=== PATIENT | female | born 1960 | race Caucasian/White ===

== ENCOUNTER 2019-10-09 13:52 | Emergency (ER) | payer BC ==
--- OUTSIDE RECORDS SUMMARY | 2019-10-09 13:56 | XMS REPORT | Clinical Summary ---
:1960 Author Organization [facility] Address [address] [place] [address] Care Team Providers Name Role Phone MD Jennifer Primary Care Provider Allergies Active Allergy Reactions Severity Noted Date Comments Penicillins Other (See Comments) 08/20/2019 As a ch ild Medications Medication Sig Dispensed Refills Start Date End Date Status ibandronate (BONIVA) Take 150 mg by 0 Active 150 mg tablet mouth every 30 (thirty) days. Take in AM with glass of water prior to food, don't lie down for 30 minutes. Next dose 09/05/19 calcium Take 1 tablet by 0 Act christi carbonate/vitamin D3 mouth daily. (CALCIUM 500 + D ORAL) therapeutic Take 1 tablet by 0 A ctive multivitamin mouth daily. (THERAGRAN) tablet aspirin (ECOTRIN) 81 MG Take 81 mg by 0 Active enteric coated tablet mouth daily. ibuprofen (ADVIL) 200 Take 200 mg by 0 Active MG tablet mouth every 8 (eight) hours as needed for mild pain. acetaminophen-codeine Take 1 tablet by 0 Active (TYLENOL WITH CODEINE mouth nightly #3) 300-30 mg per .acute pain. tabletIndications: acute pain acetaminophen (TYLENOL Take 1,000 mg by 0 Active EXTRA STRENGTH ORAL) mouth. zolpidem (AMBIEN) 5 MG Take 5 mg by 0 Active tablet mouth nightly as needed for sleep. Active Problems Problem Noted Date DDD (degenerative disc disease), lumbar 08/20/2019 Resolved Problems Problem Noted Date Resolved Date Left lumbar radiculopathy 08/20/2019 10/04/2019 Synovial cyst 08/20/2019 10/04/2019 Encounters Date Type Specialty Care Team Description 10/09/2019 Telephone Neurosurgery Josefina Mcdowell, [employer]CH[employer] 10/04/2019 Office Visit Neurosurgery Mao Monroy DDD (tiago Lewis MD disc disease), lumbar (Primary Dx) 10/04/2019 Travel 09/06/2019 Travel 09/04/2019 Anesthesia Event General Surgery Alem Anne MD Robles Garcia, Elsa, [employer] 09/04/2019 Surgery General Surgery Mao Monroy LUMBAR JENA ECTOMY, MD Joshua DISCECTOMY, EXC ISION SYNOVIAL CYST, LEFT L4-L5 09/04/2019 Hospital Encounter General Surgery Mao Monroy Radicu lopathy, lumbar region; MD Joshua Other bursal cy st, unspecified site 09/03/2019 Lab Lab Mao Monroy Pre-op testing MD Joshua 08/31/2019 Travel 08/31/2019 Orders Only Neurosurgery Josefina Mcdowell, Pre-op testing [employer] ARCHITECT (Primary Dx) 08/20/2019 Pre-Admit Testing Pre-Admission Testing Mao Monroy P re-op testing Appointment MD Joshua 08/20/2019 Hospital Encounter Radiology Mao Monroy MD 08/20/2019 Office Visit Neurosurgery Mao Monroy Left lumbar rad iculopathy (Primary Dx); MD Joshua DDD (degenzaynabti ve disc disease), lumbar; Synovial cyst 08/20/2019 Hospital Encounter Radiology Mao Monroy Spinal st enosis of MD Joshua lumbar region, unspecified whe ther neurogenic claudication pr esent 08/20/2019 Hospital Encounter Radiology Mao Monroy Spinal st enosis tyron Lewis MD lumbar region, unspecified whe ther neurogenic claudication pr esent 08/20/2019 Orders Only Neurosurgery Josefina Mcdowell, Pre-op testing [employer]CHIT[employer] (Primary Dx) 08/20/2019 Travel 08/08/2019 Orders Only Neurosurgery Josefina Mcdowell, Spinal stenosis of [employer] ARCHITECT lumbar region, unspecified whe ther neurogenic claudication pr esent (Primary Dx) 08/08/2019 Travel after 10/08/2018 Social History Tobacco Use Types Packs/Day Years Used Date Former Smoker Cigarettes 04 05 Quit: 2017 Smokeless Tobacco: Never Used Alcohol Use Drinks/Week oz/Week Comments Yes social Sex Assigned at Date Recorded Not on file Job Start Date Occupation Industry Not on file Not on file Not on file Travel History Travel Start Travel End No recent travel history available. COVID-19 Exposure Response Date Recorded In the last month, have you been in contact with No / Unsure 10/04/2019 9:02 AM CDT someone who was confirmed or suspected to have Coronavirus / COVID-19? Last Filed Vital Signs Vital Sign Reading Time Taken Comments Blood Pressure 113/54 09/04/2019 2:39 PM CDT Pulse 61 09/04/2019 2:39 PM CDT Temperature 36.4 C (97.6 F) 09/04/2019 2:39 PM CDT Respiratory Rate 14 09/04/2019 2:39 PM CDT Oxygen Saturation 95% 09/04/2019 2:39 PM CDT Inhaled Oxygen Concentration - - Weight 52 kg (114 lb 9 oz) 09/04/2019 9:20 AM CDT Height 162.6 cm (5' 4") 09/04/2019 9:20 AM CDT Body Mass Index 19.66 09/04/2019 9:20 AM CDT Plan of Treatment Health Maintenance Due Date Last Done Comments CERVICAL CANCER SCREENING 1982 BREAST CANCER SCREENING 09/29/2011 COLONOSCOPY SCREENING 09/29/2011 SHINGLES VACCINES (#1) 09/29/2011 INFLUENZA VACCINE 10/06/2019 Implants Implanted Type Area Transport Medic Device Shelf Model / Identifier Expiration Serial / Date Lot System Spine Selnt For Dural Selng Exact 5ml Duraseal - [id number] Cardiovascular N/A: [id number] 12/04/2020134043 / Implanted: 09/04/2019 at [id number] (Quantity not on file) Imp lants N/A [employer] / NEURO [id number] Procedures Procedure Name Priority Date/Time Associated Diagnosis Comme nts SURGICAL PATHOLOGY Routine 09/04/2019 1:34 Resul ts for this REQUEST PM CDT procedure are i n the results section. XR LUMBAR SPINE 1 VW Routine 09/04/2019 12:27 Res ults for this PM CDT procedure are i n the results section. PA AN ELECTIVE Routine 09/04/2019 12:17 Results f or this ENDOTRACHEAL AIRWAY PM CDT procedur e are in the results section. XR LUMBAR SPINE 1 VW Routine 09/04/2019 11:55 Res ults for this AM CDT procedure are i n the results section. XR LUMBAR SPINE 1 VW Routine 09/04/2019 11:49 Res ults for this AM CDT procedure are i n the results section. LAMINECTOMY, LUMBAR 09/04/2019 11:04 Radiculopathy, AM CDT lumbar region Other bursal cyst, unspecified site Case Notes EST 2 HRS, POSSIBLE EXTENDED STAY, PROAXIS TABLE, MICROSCOPE Special Needs EST 2 HRS, POSSIBLE EXTENDED STAY, PROAXIS TABLE, MICROSCOPE COVID-19 QUALITATIVE Routine 08/31/2019 3:00 Pre-op testing R esults for this PCR PM CDT procedure are i n the results section. HC COMPLETE BLD COUNT Routine 08/20/2019 3:59 Pre-op testing Results for this W/AUTO DIFF PM CDT procedure are i n the results section. COVID-19 QUALITATIVE Routine 08/20/2019 3:06 Pre-op testing R esults for this PCR PM CDT procedure are i n the results section. ESTIMATED GFR Routine 08/20/2019 3:03 Results fo r this PM CDT procedure are i n the results section. COMPREHENSIVE Routine 08/20/2019 3:03 Pre-op testing Results for this METABOLIC PANEL PM CDT procedure ar e in the results section. XR LUMBAR SPINE Routine 08/20/2019 12:09 Spinal stenosis of Re sults for this COMPLETE W BENDING PM CDT lumbar region, procedu re are in unspecified whether the resu lts neurogenic section. claudication present XR SPINE SCOLIOSIS 2-3 Routine 08/20/2019 12:08 Spinal stenosi s of Results for this VIEWS PM CDT lumbar region, procedure are in unspecified whether the resu lts neurogenic section. claudication present MRI SPINE EXTERNAL Routine 07/23/2019 5:26 Resul ts for this STUDY PM CDT procedure are i n the results section. after 10/08/2018 Results Surgical pathology request (09/04/2019 1:34 PM CDT) [facility] DEPARTMENT OF PATHOLOGY AND GENOMIC MEDICINE Surgical pathology See link below [facility] DEPARTMENT OF report for PDF Lab PATHOLOGY AND Report GENOMIC MEDICINE Result status This is Final [facility] DEPARTMENT OF Report for PATHOLOGY AND [id number] GENOMIC MEDICINE Specimen Performing Organization Address City/State/Zipcode Phone Number [facility] DEPARTMENT OF PATHOLOGY AND [address], [place] [address] GENOMIC MEDICINE XR Lumbar Spine 1 Vw (09/04/2019 12:27 PM CDT)Only the most recent of3 results within the time period is included. Specimen Narrative Performed At EXAMINATION: XR LUMBAR SPINE 1 VW [facility] CLINICAL HISTORY: Lumbar pain and radicu lopathy COMPARISON: Intraoperative x-ray from earlier today FINDINGS: There are radiopaque instruments overlapping the posterior elements at the L4-5 level. One instrument tip overlap s the anterior canal at the upper L5 level. There are degenerative ch anges in the lumbar spine. IMPRESSION: Lateral portable crosstable intraoperative radiograph of the lumbar spine for localization during lumbar spi ne surgery. [id number] Procedure Note Interface, Radiology Results Incoming - 09/04/2019 1:54 PM CDT EXAMINATION: XR LUMBAR SPINE 1 VW CLINICAL HISTORY: Lumbar pain and radicu lopathy COMPARISON: Intraoperative x-ray from e clarisaer today FINDINGS: There are radiopaque instrumen ts overlapping the posterior elements at the L4-5 level. One instrument tip overlaps the anterior canal at the upper L5 level. There are degenerative changes in the lumbar spine. IMPRESSION: Lateral portable crosstable intraoperati ve radiograph of the lumbar spine for localization during lumbar spine surgery. [id number] Performing Organization Address City/State/Zipcode Phone Number [facility] [address] [place] [address] Airway (09/04/2019 12:17 PM CDT) Narrative Performed At Alem Anne MD 09/04/2019 12:18 PM Airway Performed by: Alem Anne MD Authorized by: Alem Anne MD Location: OR Urgency: Elective Difficult Airway: No Preoxygenated with 100% O2: Yes C-spine Precautions Maintained Throughou t: Yes Mask Ventilation: Easy mask Final Airway Type: Endotracheal airway Final Endotracheal Airway: ETT Cuffed: Yes Technique Used: Direct laryngoscopy Devices/Methods Used in Placement: Int ubating stylet Insertion Site: Oral Blade Type: Isaac Laryngoscope Blade/Videolaryngoscope Arturo de Size: 2 ETT Size (mm): 7.0 Cuff at minimum occlusion pressure: Yes Measured from: Teeth Placement Verified by: CO2 detection and direct visualization Laryngoscopic view: Grade I - full vie w of glottis Rapid Sequence Induction (RSI): No Modified RSI: No Number of Attempts at Approach: 1 COVID-19 qualitative PCR (08/31/2019 3:00 PM CDT)Only the most recent of2 resultswithin the time period is included. Interpretation Negative results do not prec lude 2019-nCoV infection and should not be used as the sole basis for treatment or other patient management decisions. Negative results must be combined with clinical observations, patient history, and epidemiological [facility]IVENS information. [facility] COVID-19 qualitative Not-Detected Not-Detecte [place] PCR result d [facility] COVID-19 qualitative See link below for [place] PCR PDF Lab [facility] ReportComment: Case HOSPITAL Number: [id number] Specimen Performing Organization Address City/[facility]/Zipcode Phone Number [facility] DEPARTMENT OF PATHOLOGY AND [address] [place], [place] [address] GENOMIC MEDICINE [facility] [address] [place] [address] [facility] CBC with platelet and differential (08/20/2019 3:59 PM CDT) WBC 6.19 4.50 - 11.00 [facility] k/uL HOSPITAL RBC 4.44 4.20 - 5.50 [facility] m/uL [facility] HGB 12.8 12.0 - 16.0 [facility] g/dL [facility] HCT 40.8 37.0 - 47.0 % [facility] MCV 91.9 82.0 - 100.0 [facility] MCH 28.8 27.0 - 34.0 pg [facility] MCHC 31.4 31.0 - 37.0 [facility] g/dL [facility] RDW - SD 45.2 37.0 - 55.0 fL [facility] MPV 10.7 8.8 - 13.2 fL [facility] Platelet count 187 150 - 400 k/uL [facility] Nucleated RBC 0.00 /100 WBC [facility] Neutrophils 62.9 39.0 - 69.0 % [facility] Lymphocytes 28.1 25.0 - 45.0 % [facility] Monocytes 7.3 0.0 - 10.0 % [facility] Eosinophils 0.8 0.0 - 5.0 % [facility] Basophils 0.6 0.0 - 1.0 % [facility] Immature granulocytes 0.3Comment: 0.0 - 1.0 % [facility] "Immature HOSPITAL granulocytes" (promyelocytes , myelocytes, metamyelocytes ) Specimen Blood Performing Organization Address City/State/Zipcode Phone Number [facility] DEPARTMENT OF PATHOLOGY AND [address] [place] [phone] [facility] [address] [place] [address] Estimated GFR (08/20/2019 3:03 PM CDT) Pathologist [facility] Estimated GFR >=90 mL/min/1.73 [facility] Comment: m2 HOSPITAL Catergory Units Interpretation G1 >=90 Normal or high G2 60-89 Mildly decreased G3a 45-59 Mildly to moderately decreas ed G3b 30-44 Moderately to severely decre ased G4 15-29 Severely decreased G5 <15 Kidney failure The eGFR was calculated using the Chronic Kidney Disea se Epidemiology Collaboration (CKD-EPI) equation. Interpretation is based on recommendations of the National Kidney Foundation-Kidney Disease Outcomes Derik lity Initiative (NKF-KDOQI) published in 2014. Specimen Performing Organization Address City/State/Zipcode Phone Number [facility] DEPARTMENT OF PATHOLOGY AND [address] [place] [phone] [place] [id number] [place] [address] Comprehensive metabolic panel (08/20/2019 3:03 PM CDT) [facility] Sodium 139 135 - 148 [facility] mEq/L [facility] Potassium 3.7 3.5 - 5.0 [facility] mEq/L [facility] Chloride 99 98 - 112 [facility] mEq/L [facility] CO2 25 24 - 31 mEq/L [facility] Anion gap 15@ANIO 7 - 15 mEq/L [facility] BUN 26 (H) 6 - 20 mg/dL [facility] Creatinine 0.68 0.50 - 0.90 [facility] mg/dL HOSPITAL Glucose 87 65 - 99 mg/dL [facility] Calcium 10.1 8.3 - 10.2 [facility] mg/dL [facility] Protein 7.2 6.3 - 8.3 [facility] Comment: g/dL HOSPITAL - 4.6-7.0 g/dL 1 week 4.4-7.6 g/dL 7 months-1year 5.1-7.3 g/dL 1-2 years 5.6-7.5 g/dL >3 years 6.0-8.0 g/dL 18-150 6.3-8.3 g/dL Albumin 4.0 3.5 - 5.0 [facility] g/dL [facility] A/G ratio 1.2 0.7 - 3.8 [facility] Alkaline phosphatase 53 35 - 104 U/L [facility] AST 26 10 - 35 U/L [facility] ALT 27 5 - 50 U/L [facility] Total bilirubin <0.2 0.0 - 1.2 [facility] mg/dL HOSPITAL Specimen Blood Performing Organization Address [facility] Phone Number [facility] DEPARTMENT OF PATHOLOGY AND [address], [place] [address] GENOMIC MEDICINE [facility] [address] [place] [address] XR Lumbar Spine Complete W Flex and Ext (08/20/2019 12:09 PM CDT) Specimen Narrative Performed At EXAMINATION: XR LUMBAR SPINE COMPLETE W FLEX & EXTEND [facility] CLINICAL HISTORY: M48.061 Spinal stenosis lumbar reg ion without neurogenic claudication, stenosis HNP COMPARISON: None IMPRESSION: Hypoplastic 12th ribs. 5 lumbar type vertebrae with the last fu lly formed disc at L5-S1. Alignment is within normal limits. No ev idence of dynamic instability. Severe intervertebral disc space narrowing at L5-S1 wi th mild anterior osteophyte formation. Mild to moderate anterior aspect formation at T12-L1 w ith mild endplate sclerosis. Mild suspected bilateral facet hypertrophy involving t he mid and lower lumbar levels. Vertebral body heights are maintained. No suspicious osseous lesion. [id number] Procedure Note Interface, Radiology Results Incoming - 08/20/2019 12:55 PM CDT EXAMINATION: XR LUMBAR SPINE COMPLETE W FLEX & EXTEND CLINICAL HISTORY: M48.061 Spinal stenosi s lumbar region without neurogenic claudication, stenosis HNP COMPARISON: None IMPRESSION: Hypoplastic 12th ribs. 5 lumbar type vertebrae with the last fu lly formed disc at L5-S1. Alignment is within normal limits. No ev idence of dynamic instability. Severe intervertebral disc space narrowi ng at L5-S1 with mild anterior osteophyte formation. Mild to moderate anterior aspect formati on at T12-L1 with mild endplate sclerosis. Mild suspected bilateral facet hypertrop hy involving the mid and lower lumbar levels. Vertebral body heights are maintained. No suspicious osseous lesion. [id number] Performing Organization Address [facility] Cent[facility]ode Phone Number [facility] [address] [place] [address] XR Spine Scoliosos 2-3 Views (08/20/2019 12:08 PM CDT) Specimen Narrative Performed At EXAMINATION: XR SPINE SCOLIOSIS 2-3 VIEW S [facility] CLINICAL HISTORY: M48.061 Spinal stenosis lumbar reg ion without neurogenic claudication, lumbar stenosis HNP COMPARISON: None IMPRESSION: 12 rib-bearing thoracic vertebrae with hypoplastic 12t h ribs. 5 lumbar type vertebrae. Minor curvatures of the thoracic and lumbar spine in t he coronal plane without scoliosis. Sagittal alignment is within normal limits. A coronal leila line drawn inferiorly from the mid C7 vertebral body terminates approximately 3 mm to the rig ht of the mid S1 level. A sagittal leila line drawn inferiorly from the mid C7 vertebral body terminates approximately 1.5 cm anterior to the stone gluer ior aspect of the superior endplate of S1. Mild rightward pelvic tilt with approximately 6 mm off set of the superior aspects of the femoral heads. [id number] Procedure Note Interface, Radiology Results Incoming - 08/20/2019 12:53 PM CDT EXAMINATION: XR SPINE SCOLIOSIS 2-3 VIEWS CLINICAL HISTORY: M48.061 Spinal stenosi s lumbar region without neurogenic claudication, lumbar stenosis HNP COMPARISON: None IMPRESSION: 12 rib-bearing thoracic vertebrae with h ypoplastic 12th ribs. 5 lumbar type vertebrae. Minor curvatures of the thoracic and lum bar spine in the coronal plane without scoliosis. Sagittal alignment is within normal limits. A coronal leila line drawn inferiorly fr om the mid C7 vertebral body terminates approximately 3 mm to the right of the mid S1 level. A sagittal leila line drawn inferiorly f rom the mid C7 vertebral body terminates approximately 1.5 cm anterior to the posterior aspect of the superior endplate of S1. Mild rightward pelvic tilt with approxim ately 6 mm offset of the superior aspects of the femoral heads. [id number] Performing Organization Address City/State/Zipcode Phone Number [facility] [address] [place] [address] MRI Spine External Study (07/23/2019 5:26 PM CDT) Specimen Narrative Performed At This exam was not acquired at a [facility] facility and has not been [facility] interpreted by a [facility] Provider. T he exam was imported into our imaging system. 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
--- OUTSIDE RECORDS SUMMARY | 2019-10-09 13:57 | XMS REPORT | Continuity of Care Document ---
:1960 Author Organization [facility] t Address [address] [place] [address] Care Team Providers Name Role Phone Jennifer JESUS Primary Care Physician Jeremias MOSSN Attending Clinician Unavailable Joshua Monroy MD Attending Clinician Omid JESUS Attending Clinician Derek Maynard NP Attending Clinician LIANNE Admitting Clinician Unavailable Payers Payer Name Policy Type Policy Number Effective Date Expiration Date S colby BCBSBCBS OUT xxxxxxxxxxxx 2019 [facility] OF 00:00:00 [facility] STATExxxxxxxxx xxx2019-Pr esentPPO Problems Condition Condition Condition Status Onset Resolution Last Treating Co mments Source Name Details Category Date Date Treatment Clinician Date DDD DDD Disease Active [facility] (degenerat (degenerat 6-15 Me thodi christi disc christi disc 00:00: st disease), disease), 00 lumbar lumbar Left Left Disease Resolve 2019-10-04 2019-10-04 [facility] lumbar lumbar d 6-15 00:00:00 09:42:41 Method i radiculopa radiculopa 00:00: st thy thy 00 Synovial Synovial Disease Resolve 2019-10-04 2019-10-04 [facility] cyst cyst d 6-15 00:00:00 09:42:43 Method i 00:00: st 00 Allergies, Adverse Reactions, Alerts Allergy Allergy Status Severity Reaction(s) Onset Inactive Treating Comm ents Source Name Type Date Date Clinician Penicill Propensi Active Other (See As a Catalino wiggins ins ty to Comments) 6-15 child Methodi adverse 00:00: st reaction 00 s to drug penicill DA [facility] [place] [facility] No Known DA [facility] Contrast 10-21 [place] Allergie 00:00: d s 00 [facility] No Known DA [facility] Food 10-21 [place] Allergie 00:[facility]: d s 00 [facility] No Known DA [facility] Other 10-21 [place] Allergie 00:00: d s 00 [facility] PENICILL DA Active [facility] IN 10-21 [place] [facility] d [facility] Social History Social Habit Start Date Stop Date Quantity Comments Source History of tobacco Current smoker Catalino wiggins [facility] use Sex Assigned At [facility] ethodi Exposure to Not sure [facility] Metho dist SARS-CoV-2 (event) Cigarettes smoked 2019-09-05 2019-09-05 [facility] current (pack per 00:00:00 00:00:00 day) - Reported Cigarette 2019-09-05 2019-09-05 [facility] Method ist pack-years 00:00:00 00:00:00 Alcohol intake 2019-09-05 2019-09-05 Current drinker [place] [facility] 00:00:00 00:00:00 of alcohol (finding) Alcohol Comment 2019-08-20 2019-08-20 social [facility] ethodist 00:00:00 00:00:00 Smoking Status Start Date Stop Date Source Former smoker 2019-09-05 00:00:00 2019-09-05 00:00:00 [facility] Medications Ordered Filled Start Stop Current Ordering Indication Dosage Frequency Signature Comments Components Source Medication Medication Date Date Medication? Clinician (SIG) Name Name ibandronate Yes 150mg Q30D Take 150 [place] (BONIVA) 6-30 mg by Methodi 150 mg 16:09: mouth st tablet 08 every 30 (thirty) days. Take in AM with glass of water prior to food, don't lie down for 30 minutes. Next dose 09/05/19 calcium 2020-0 Yes 1{tbl} QD Take 1 [place] carbonate/v 6-30 tablet by Met hodi itamin D3 16:09: mouth st (CALCIUM 08 daily. 500 + D ORAL) therapeutic 2020-0 Yes 1{tbl} QD Take 1 [place] multivitami 6-30 tablet by Met agueda n 16:09: mouth st (THERAGRAN) 08 daily. tablet aspirin 2020-0 Yes 81mg QD Take 81 mg [place] (ECOTRIN) 6-30 by mouth Method i 81 MG 16:09: daily. st enteric 08 coated tablet ibuprofen 2020-0 Yes 200mg Q8H Take 200 [address] ston (ADVIL) 200 6-30 mg by Methodi MG tablet 16:09: mouth st 08 every 8 (eight) hours as needed for mild pain. acetaminoph 2020-0 Yes acute pain 1{tbl} QD Take 1 [place] en-codeine 6-30 tablet by Meth dhiraj (TYLENOL 16:09: mouth st WITH 08 nightly CODEINE #3) .acute 300-30 mg pain. per tablet acetaminoph 2020-0 Yes 1000mg Take 1,000 [place] en (TYLENOL 6-30 mg by Methodi EXTRA 16:09: mouth. st STRENGTH 08 ORAL) zolpidem 2020-0 Yes 5mg QD Take 5 mg [place] (AMBIEN) 5 6-30 by mouth Metho di MG tablet 16:09: nightly as st 08 needed for sleep. Vital Signs Vital Name Observation Time Observation Value Comments Source Systolic blood 2019-09-04 14:39:00 113 mm[Hg] [place] [facility] pressure Diastolic blood 2019-09-04 14:39:00 54 mm[Hg] [place] [facility] pressure Heart rate 2019-09-04 14:39:00 61 /min Marlo Ramirez Body temperature 2019-09-04 14:39:00 36.44 Zeynep [place] [facility] Respiratory rate 2019-09-04 14:39:00 14 /min [place] [facility] Oxygen saturation in 2019-09-04 14:39:00 95 /min Marlo Ramirez Arterial blood by Pulse oximetry Body height 2019-09-04 09:20:00 162.6 cm Marlo Ramirez Body weight 2019-09-04 09:20:00 51.965 kg Marlo Ramirez BMI 2019-09-04 09:20:00 19.66 kg/m2 Marlo Ramirez Procedures Procedure Date / Time Performed Performing Clinician [facility] e SURGICAL PATHOLOGY 2019-09-04 13:34:00 Jaison Monroy ethodist REQUEST XR LUMBAR SPINE 1 VW 2019-09-04 12:27:39 Jaison Monroy MI AN ELECTIVE 2019-09-04 12:17:10 Omid Alem Marlo Meth odist ENDOTRACHEAL AIRWAY XR LUMBAR SPINE 1 VW 2019-09-04 11:55:05 Jaison Monroy XR LUMBAR SPINE 1 VW 2019-09-04 11:49:00 Jaison Monroy LAMINECTOMY, LUMBAR 2019-09-04 11:04:00 Jaison Monroy COVID-19 QUALITATIVE PCR 2019-08-31 15:00:00 Jaison Monroy HC COMPLETE BLD COUNT 2019-08-20 15:59:00 Jaison Monroy W/AUTO DIFF COVID-19 QUALITATIVE PCR 2019-08-20 15:06:00 Jaison Monroy COMPREHENSIVE METABOLIC 2019-08-20 15:03:00 Jaison Monroy PANEL ESTIMATED GFR 2019-08-20 15:03:00 Jaison Monroy odist XR LUMBAR SPINE COMPLETE 2019-08-20 12:09:35 Jaison Monroy W BENDING XR SPINE SCOLIOSIS 2-3 2019-08-20 12:08:58 Jaison Mornoy on [facility] VIEWS MRI SPINE EXTERNAL STUDY 2019-07-23 17:26:00 Jaison Monroy Plan of Care Planned Activity Planned Date Details Comments Source Future Scheduled 2019-10-06 INFLUENZA VACCINE iZ gonzalez [facility] Test 00:00:00 [code = INFLUENZA VACCINE] Future Scheduled 2011-09-29 BREAST CANCER Marlo Vogt thodist Test 00:00:00 SCREENING [code = BREAST CANCER SCREENING] Future Scheduled 2011-09-29 COLONOSCOPY SCREENING Catalino Ramirez Test 00:00:00 [code = COLONOSCOPY SCREENING] Future Scheduled 2011-09-29 SHINGLES VACCINES Zi gonzalez [facility] Test 00:00:00 (#1) [code = SHINGLES VACCINES (#1)] Future Scheduled 1982 Screening for [facility]odist Test 00:00:00 malignant neoplasm of cervix (procedure) [code = 290934218] Encounters Start End Encounter Admission Attending Care Care Encounter Source Date/Time Date/Time Type Type Clinicians Facility Department ID 2019-10-04 2019-10-04 Outpatient [facility] [id number] [facility] 00:00:00 00:00:00 JAISON [address] 2019-09-04 2019-09-04 Outpatient [facility] [id number] [facility] 00:00:00 00:00:00 JAISON [address] 2019-08-31 2019-08-31 Outpatient [facility] [id number] [facility] 00:00:00 00:00:00 JAISON [address] 2019-08-20 2019-08-20 [facility] [id number] [facility] 00:00:00 00:00:00 JAISON [address] 2019-08-20 2019-08-20 Outpatient [facility] [id number] [facility] 00:00:00 00:00:00 JAISON [address] 2019-08-20 2019-08-20 [facility] [id number] [facility] 00:00:00 00:00:00 JAISON [address] 2019-08-20 2019-08-20 [facility] [id number] [facility] 00:00:00 00:00:00 JAISON [address] 2019-08-20 2019-08-20 Outpatient [facility] [id number] [facility] 00:00:00 00:00:00 JAISON [address] Results Test Description Test Time Test Comments Results Result Comments Source Surgical pathology request 2019-09-10 14:53:15 Test Item Value Reference Range Interpretation Comme nts Case number (test code = [id number]) [id number] Surgical pathology report (test code = See link below for PDF Lab R eport 1913) Result status (test code = 8597393) This is Final Report for [id number] 1813-2 [facility] Lumbar Spine 1 [id number] 13:51:31Hm Interface, Radiology Results 09/04/2019 1:54 PM CDTEXAMINATION: XR LUMBAR SPINE 1 VWCL INICAL HISTORY: Lumbar pain and radiculopathyCOMPARISON: Intraoperative x-ray from earlier todayFINDINGS: There are radiopaque instruments overlapping the posterior elements at the L4-5 level. One instrument tip overlaps the anterior canal at the upper L5 level. There are degenerative changes in the lumbar spine.IMPRESSION:Lateral portable crosstable intraoperative radiograph of the lumbar spine forlocalization during lumbar spine surgery.[facility]-[id number] [id number] 12:17:10MitAlem spencer MD 09/04/2019 12:18 PMAirwayPerformed by: Alem Anne MDAuthorized by: Alem Anne MD Location: ORUrgency: ElectiveDifficult Airway: No Preoxygenated with 100% O2: Yes C-spine Precautions Maintained Throughout: Yes Mask Ventilation: Easy maskFinal Airway Type: Endotracheal airwayFinal Endotracheal Airway: ETTCuffed: Yes Technique Used: Direct laryngoscopyDevices/Methods Used in Placement: Intubating styletInsertion Site: OralBlade Type: MillerLaryngoscope Blade/Videolaryngoscope Blade Size: 2ETT Size (mm): 7.0Cuff at minimum occlusion pressure: Yes Measured from: TeethPlacement Verified by: CO2 detection and direct visualization Laryngoscopic view: Grade I - full view of glottisRapid Sequence Induction (RSI): No Modified RSI: No Number of Attempts at Approach: [facility] MethodistCOVID-19 qualitative [id number] 22:09:41 Test Item Value Reference Range Interpretation Comments Interpretation (test Negative results do code = 7612263) not preclude 2019-nCoV infection and should not be used as the sole basis for treatment or other patient management decisions. Negative results must be combined with clinical observations, patient history, and epidemiological information. COVID-19 qualitative Not-Detected Not-Detected PCR result (test code = 20092-3) COVID-19 qualitative See link below for C ase Number: PCR (test code = PDF Lab Report [id number]) [facility] MethodistComprehensive metabolic [id number] 17:46:58 Test Item Value Reference Range Interpretation Comments Sodium (test code = 139 135- 148 mEq/L 2951-2) Potassium (test code = 3.7 3.5- 5.0 mEq/L 2823-3) Chloride (test code = 99 98- 112 mEq/L 2074-0) CO2 (test code = 2027-) 25 24- 31 mEq/L Anion gap (test code = 15@ANIO 7- 15 mEq/L 92883-8) BUN (test code = 3094-0) 26 mg/dL 6-20 H Creatinine (test code = 0.68 mg/dL 0.5-0.9 0-0) Glucose (test code = 87 mg/dL 65-99 5-7) Calcium (test code = 10.1 mg/dL 8.3-10.2 04371-2) Protein (test code = 7.2 g/dL 6.3-8.3 -[place] n 2885-2) 4.6-7.0 g/dL1 week 4.4-7 .6 g/dL7 months-1y ear 5.1-7 .3 g/dL1-2 years 5.6-7 .5 g/dL>3 years 6.0-8 .0 g/rE55-931 6.3-8 .3 g/dL Albumin (test code = 4.0 g/dL 3.5-5 1750-7) A/G ratio (test code = 1.2 0.7-3.8 9-0) Alkaline phosphatase 53 U/L 35-104 (test code = 6768-6) AST (test code = 1920-8) 26 U/L 10-35 ALT (test code = 1742-6) 27 U/L 5-50 Total bilirubin (test <0.2 0-1.2 code = 1974-2) Lab Interpretation (test Abnormal code = 61975-0) [facility] MethodistEstimated [id number] 17:46:57 Test Item Value Reference Range Interpretation Comments Estimated GFR (test >=90 mL/min/1.73 m2 [facility] Units code = 5488) InterpretationG 1 >=90 Normal or highG2 60-89 Mildly bxgdivmwxQ4m 45-59 Mildly to mode rately tzrzmexbhV1w 30-44 Moderately to severely decreasedG4 15-29 Severely decre asedG5 <15 Kidn ey failureThe eGFR was calculated usin g the Chronic Kidney Disease Epidemiology Co llaboration (CKD-EPI) equat ion. Interpretation is based on recommendations of the National Kidney Foundation-Kidn ey Disease Outcomes Qualit y Initiative (NKF-KDOQI) pub lished in 2014. [facility] MethodistCBC with platelet and [id number] 17:21:53 Test Item Value Reference Range Interpretation Comments WBC (test code = 6.19 4.50- 11.00 k/uL 50471-2) RBC (test code = 4.44 m/uL 4.2-5.5 75517-0) HGB (test code = 718-7) 12.8 g/dL 12-16 HCT (test code = 4544-3) 40.8 % 37-47 MCV (test code = 787-2) 91.9 fL 82-100 MCH (test code = 785-6) 28.8 pg 27-34 MCHC (test code = 786-4) 31.4 g/dL 31-37 RDW - SD (test code = 45.2 fL 37-55 56591-6) MPV (test code = 10.7 fL 8.8-13.2 72886-2) Platelet count (test 187 150- 400 k/uL code = 49322-1) Nucleated RBC (test code 0.00 /100 WBC = 16759-1) Neutrophils (test code = 62.9 % 39-69 25385-0) Lymphocytes (test code = 28.1 % 25-45 10032-2) Monocytes (test code = 7.3 % 0-10 42245-7) Eosinophils (test code = 0.8 % 0-5 00601-6) Basophils (test code = 0.6 % 0-1 66019-1) Immature granulocytes 0.3 % 0-1 "Immat ure (test code = 74831-4) granul ocytes" (promyelocytes, myelocytes, metamyelocytes) [facility] MethodistMRI Spine External [id number] 13:11:35This exam was not acquired at a [facility] facility and has not been interpreted by a [facility] Provider. 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 No evidence of dynamic instability.Severe intervertebral disc space narrowing at L5-S1 with mild anterior osteophyte formation.Mild to moderate anterior aspect formation at T12- L1 with mild endplate sclerosis.Mild suspected bilateral facet hypertrophy involving the mid and lower lumbar levels.Vertebral body heights are maintained. 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 5 lumbar type vertebrae.Minor curvatures of the thoracic and lumbar spine in the coronal plane without scoliosis. Sagittal alignment is within normal limits.A coronal leila line drawn inferiorly from the mid C7 vertebral body terminates approximately 3 mm to the right of the mid S1 level. A sagittal leila line drawn inferiorly from the mid C7 vertebral body terminates approximately 1.5 cm anteriorto the posterior aspect of the superior endplate of S1. Mild rightward pelvic tilt with approximately 6 mm offset of the superior aspects of the femoral heads.[id number] [facility]
[2019-10-09] MEDS ORDERED: DERMABOND SKIN ADHESIVE TOP ONE (14:41)
[2019-10-09] MEDS ORDERED: dexAMETHasone 10 MG/ML VIAL ONE (14:47)
[2019-10-09] MEDS ORDERED: DIAZEPAM 10 MG/2 ML INJ SYRINGE ONE (14:47)
[2019-10-09] MEDS ORDERED: ONDANSETRON 4 MG/2 ML VIAL ONE (14:47)
[2019-10-09] MEDS ORDERED: MORPHINE 4 MG/ML SYR ONE ×2 (14:47→16:34)
[2019-10-09] MEDS ORDERED: NA CHLORIDE 0.9% 1,000 ML ONE (14:48)
[2019-10-09] MEDS ORDERED: KETOROLAC 30 MG/ML INJ ONE (14:48)
[2019-10-09 15:18] LABS: Absolute Lymphocytes (CBC) 2.1 K/uL (0.7-4.9); Basophils % 1.1 % (0-1.3); Hematocrit 40.9 % (36.0-45.0); Lymphocytes % 34.6 % (15.3-44.8); MPV 9.1 fL (7.6-11.3); RBC Red Blood Cell Count 4.65 M/uL (3.86-4.86)
[2019-10-09 15:27] LABS: ALT/SGPT 24 U/L (12-78); AST/SGOT 22 U/L (15-37); Albumin 4.2 g/dL (3.4-5.0); Alkaline Phosphatase 78 U/L (45-117); BUN Blood Urea Nitrogen 20 mg/dL (7-18); Bicarbonate 24 mmol/L (21-32); Bilirubin Total 0.3 mg/dL (0.2-1.0); Glucose Level 93 mg/dL (74-106); Potassium 3.6 mmol/L (3.5-5.1); Protein, Total 7.7 g/dL (6.4-8.2); Sodium Level 139 mmol/L (136-145); Troponin I < 0.02 ng/mL (0.0-0.045)
--- NOTE | 2019-10-09 15:39 | RAD REPORT ---
EXAM DESCRIPTION: CT - C Spine Wo Con - 10/09/2019 3:13 pm CLINICAL HISTORY: Right radiculopathy COMPARISON: None. TECHNIQUE: Computed axial tomography of the cervical spine were obtained with sagittal and coronal r econstruction images generated and reviewed. All CT scans are performed using dose optimization technique as appropriate and may include automated exposure control or mA/KV adjustment according to patient size. FINDINGS: A cervical fracture is not seen. No dislocation Right facet hypertrophy at C2-3 results in moderate narrowing of the right neural foramina Minimal anterior subluxation C3 on C4. Osteophytes and right facet hypertrophy resulting in marked na rrowing of the right neural foramina. Osteophytes and left facet hypertrophy resulting in mild to mod erate narrowing left neural foramina Osteophytes and facet hypertrophy C5-6 resulting in mild to moderate narrowing the right neural joe donna IMPRESSION: A cervical fracture is not seen. Spondylosis C2-3 resulting in moderate right foraminal stenosis Spondylosis C3-4 resulting and marked right foraminal stenosis MRI may be helpful for further evaluation
--- NOTE | 2019-10-09 15:41 | RAD REPORT ---
EXAM DESCRIPTION: Mela Single View10/09/2019 2:59 pm CLINICAL HISTORY: Chest pain COMPARISON: 2010 FINDINGS: The lungs appear clear of acute infiltrate. The heart is normal size IMPRESSION: No acute abnormalities displayed
--- NOTE | 2019-10-09 16:18 | EDPHYS ---
Physician Documentation [facility] Name: Adrienne Pennington Age: 59 yrs Sex: Female : 1960 Arrival Date: 10/09/2019 Time: 13:54 Bed 8 Private MD: ED Physician Robert Silverio HPI: 10/08 14:34 This 59 yrs old Female presents to ER via Ambulatory with complaints of mateo Shoulder Pain. 14:34 The patient or guardian complains of decreased range of motion, pain, that is acute. mateo right shoulder, right trapezius and right sternocleidomastoid. Context: The problem was sustained at an unknown site. Onset: The symptoms/episode began/occurred just prior to arrival, this morning. Modifying factors: the symptoms are alleviated by remaining still, The symptoms are aggravated by movement. Associated signs and symptoms: The patient has no apparent associated signs or symptoms. Severity of symptoms: At their worst the symptoms were moderate, in the emergency department the symptoms are unchanged. The patient has not experienced similar symptoms in the past. Historical: - Allergies: 14:13 PENICILLINS; aa5 - PMHx: 14:13 CVA; aa5 - PSHx: 14:13 Back sx; aa5 - Immunization history:: Adult Immunizations up to date. - Social history:: Smoking status: Patient/guardian denies using tobacco, the patient reports quitting approximately 2 years ago. - Family history:: not pertinent. ROS: 14:34 Constitutional: Negative for fever, chills, and weight loss, Eyes: Negative for injury, mateo pain, redness, and discharge, ENT: Negative for injury, pain, and discharge, Cardiovascular: Negative for chest pain, palpitations, and edema, Respiratory: Negative for shortness of breath, cough, wheezing, and pleuritic chest pain, Abdomen/GI: Negative for abdominal pain, nausea, vomiting, diarrhea, and constipation, : Negative for injury, bleeding, discharge, and swelling, MS/Extremity: Negative for injury and deformity, Skin: Negative for injury, rash, and discoloration, Neuro: Negative for headache, weakness, numbness, tingling, and seizure, Psych: Negative for depression, anxiety, suicide ideation, homicidal ideation, and hallucinations, Allergy/Immunology: Negative for hives, rash, and allergies, Endocrine: Negative for neck swelling, polydipsia, polyuria, polyphagia, and marked weight changes. 14:34 Neck: Positive for pain with movement, pain at rest. 14:34 Back: Positive for decreased range of motion, pain at rest, pain with movement, of the right scapular area. Exam: 14:34 Constitutional: This is a well developed, well nourished patient who is awake, alert, mateo and in no acute distress. Head/Face: Normocephalic, atraumatic. Eyes: Pupils equal round and reactive to light, extra-ocular motions intact. Lids and lashes normal. Conjunctiva and sclera are non-icteric and not injected. Cornea within normal limits. Periorbital areas with no swelling, redness, or edema. ENT: Nares patent. No nasal discharge, no septal abnormalities noted. Tympanic membranes are normal and external auditory canals are clear. Oropharynx with no redness, swelling, or masses, exudates, or evidence of obstruction, uvula midline. Mucous membranes moist. Chest/axilla: Normal chest wall appearance and motion. Nontender with no deformity. No lesions are appreciated. Cardiovascular: Regular rate and rhythm with a normal S1 and S2. No gallops, murmurs, or rubs. Normal PMI, no JVD. No pulse deficits. Respiratory: Lungs have equal breath sounds bilaterally, clear to auscultation and percussion. No rales, rhonchi or wheezes noted. No increased work of breathing, no retractions or nasal flaring. Abdomen/GI: Soft, non-tender, with normal bowel sounds. No distension or tympany. No guarding or rebound. No evidence of tenderness throughout. Female : Normal external genitalia. Skin: Warm, dry with normal turgor. Normal color with no rashes, no lesions, and no evidence of cellulitis. MS/ Extremity: Pulses equal, no cyanosis. Neurovascular intact. Full, normal range of motion. Neuro: Awake and alert, GCS 15, oriented to person, place, time, and situation. Cranial nerves II-XII grossly intact. Motor strength 5/5 in all extremities. Sensory grossly intact. Cerebellar exam normal. Normal gait. Psych: Awake, alert, with orientation to person, place and time. Behavior, mood, and affect are within normal limits. 14:34 Neck: External neck: is normal, C-spine: no acute changes, Thyroid: appears normal, Trachea: is midline with no obvious abnormalities, ROM/movement: limited range of motion, that is mild, in any direction, Lymph nodes: no appreciated lymphadenopathy. 14:53 ECG was reviewed by the Attending Physician. [facility] Vital Signs: 14:00 BP 162 / 84; Pulse 106; Resp 18 S; Temp 98.5(O); Pulse Ox 95% on R/A; Weight 51.26 kg aa5 (R); Height 5 ft. 4 in. (162.56 cm) (R); 14:54 BP 162 / 84; Pulse 90; Resp 16; Pulse Ox 100% ; bp 15:13 BP 129 / 74; Pulse 86; Resp 20; Pulse Ox 100% ; bp 16:42 BP 155 / 84; Pulse 86; Resp 17; Temp 98.5; Pulse Ox 100% ; bp 14:00 Body Mass Index 19.40 (51.26 kg, 162.56 cm) aa5 MDM: 14:02 Patient medically screened. [facility] 14:36 Differential diagnosis: DJD, tendonitis. Data reviewed: vital signs, nurses notes, lab [facility] test result(s), EKG, radiologic studies. Data interpreted: classroom monitor: rate is 106 beats/min, rhythm is regular. Test interpretation: by ED physician or midlevel provider: ECG, plain radiologic studies. Counseling: I had a detailed discussion with the patient and/or guardian regarding: the historical points, exam findings, and any diagnostic results supporting the discharge/admit diagnosis, lab results, radiology results, the need for outpatient follow up, for definitive care, a neurosurgeon. 16:15 ED course: discussed findings, will have patient follow up with her neurosurgeon, dr mateo nielson. 10/08 14:33 Order name: CBC with Diff; Complete Time: 16:15 [facility] 10/08 14:33 Order name: Comprehensive Metabolic Panel; Complete Time: 16:15 [facility] 10/08 14:33 Order name: CT C Spine; Complete Time: 16:15 [facility] 10/08 14:33 Order name: Troponin I; Complete Time: 16:15 [facility] 10/08 14:33 Order name: Chest Single View XRAY; Complete Time: 16:15 [facility] 10/08 14:33 Order name: EKG; Complete Time: 14:33 [facility] 10/08 14:33 Order name: EKG - Nurse/Tech; Complete Time: 14:51 mateo EC:53 Rate is 95 beats/min. Rhythm is regular. QRS [place] is Normal. AK interval is normal. QRS mateo interval is normal. QT interval is normal. No Q waves. T waves are Normal. No ST changes noted. Clinical impression: No evidence of ischemia. Interpreted by me. Reviewed by me. Administered Medications: 14:50 Drug: NS 0.9% 1000 ml Route: IV; Rate: 1 bolus; Site: left wrist; bp 16:44 Follow up: IV Status: Infusion continued; IV Intake: 1000ml bp 14:50 Drug: Valium 5 mg Route: IVP; Site: left wrist; bp 15:14 Follow up: Response: Pain is decreased bp 14:50 Drug: Decadron - Dexamethasone 10 mg Route: IVP; Site: left wrist; bp 15:14 Follow up: Response: Pain is decreased bp 14:50 Drug: TORadol 30 mg Route: IVP; Site: left wrist; bp 15:14 Follow up: Response: Pain is decreased bp 14:50 Drug: morphine 4 mg Route: IVP; Site: left wrist; bp 15:14 Follow up: Response: Pain is decreased bp 14:50 Drug: Zofran (Ondansetron) 4 mg Route: IVP; Site: left wrist; bp 15:14 Follow up: Response: Pain is decreased bp 16:28 Drug: morphine 4 mg Route: IVP; Site: left forearm; bp 16:28 Follow up: Response: Pain is decreased bp Disposition: 10/09/19 16:17 Discharged to Home. Impression: Radiculopathy, cervical region. - Condition is Stable. - Discharge Instructions: Cervical Radiculopathy, Cervical Radiculopathy, [id number]-Kfns, Radicular Pain. - Prescriptions for Tylenol- Codeine #3 300-30 mg Oral Tablet - take 2 tablet by ORAL route every 6 hours As needed; 30 tablet. Valium 2 mg Oral Tablet - take 1 tablet by ORAL route every 8 hours As needed; 20 tablet. Diclofenac Sodium 75 mg Oral Tablet, Delayed Release (E.C.) - take 1 tablet by ORAL route 2 times per day; 20 tablet. dexamethasone 2 mg Oral tablet - take 1 tablet by ORAL route 3 times per day; 15 tablet. Pepcid 20 mg Oral Tablet - take 1 tablet by ORAL route every 12 hours for 10 days; 20 tablet. - Work release form, Medication Reconciliation Form, Thank You Letter, Antibiotic Education, Prescription Opioid Use form. - Follow up: Private Physician; When: 2 - 3 days; Reason: Recheck today's complaints, Continuance of care, Re-evaluation by your physician. Follow up: Conner Mahmood; When: 2 - 3 days; Reason: Recheck today's complaints, Continuance of care, Re-evaluation by your physician. - Problem is new. - Symptoms have improved. Signatures: Dispatcher [employer] EDMS Robert Silverio MD MD cha Calderon, Audri, RN RN aa5 Julio César Caro RN RN bp Corrections: (The following items were deleted from the chart) 16:48 16:17 10/09/2019 16:17 Discharged to Home. Impression: Radiculopathy, cervical region. bp Condition is Stable. Discharge Instructions: Cervical Radiculopathy, Cervical Radiculopathy, [id number], Radicular Pain. Prescriptions for Tylenol-Codeine #3 300-30 mg Oral Tablet - take 2 tablet by ORAL route every 6 hours As needed; 30 tablet, Valium 2 mg Oral Tablet - take 1 tablet by ORAL route every 8 hours As needed; 20 tablet, Diclofenac Sodium 75 mg Oral Tablet, Delayed Release (E.C.) - take 1 tablet by ORAL route 2 times per day; 20 tablet. and Forms are Medication Reconciliation Form, Thank You Letter, Antibiotic Education, Prescription Opioid Use. Follow up: Private Physician; When: 2 - 3 days; Reason: Recheck today's complaints, Continuance of care, Re-evaluation by your physician. Follow up: Conner Mahmood; When: 2 - 3 days; Reason: Recheck today's complaints, Continuance of care, Re-evaluation by your physician. Problem is new. Symptoms have improved. mateo
--- NOTE | 2019-10-09 16:18 | ER ---
Nurse's Notes [facility] Name: Adrienne Pennington Age: 59 yrs Sex: Female : 1960 Arrival Date: 10/09/2019 Time: 13:54 Bed 8 Private MD: Diagnosis: Radiculopathy, cervical region Presentation: 10/08 14:00 Chief complaint: Patient states: right shoulder pain that began 2 days ago. Pt states aa5 "the pain started with pain to my neck and now it has traveled to my shoulder". Pt reports back sx at [facility] 1 month ago. 14:00 Coronavirus screen: Client denies travel out of the [place] in the last 14 days. At this aa5 time, the client does not indicate any symptoms associated with coronavirus-19. Ebola Screen: Patient negative for fever greater than or equal to 101.5 degrees Fahrenheit, and additional compatible Ebola Virus Disease symptoms. Initial Sepsis Screen: Does the patient meet any 2 criteria? HR > 90 bpm. Does the patient have a suspected source of infection? No. Patient's initial sepsis screen is negative. Risk Assessment: Do you want to hurt yourself or someone else? Patient reports no desire to harm self or others. Onset of symptoms was October 2019. 14:00 Acuity: YOHAN 3 aa5 14:00 Method Of Arrival: Ambulatory aa5 Triage Assessment: 14:00 General: Appears in no apparent distress. uncomfortable, Behavior is cooperative, bp appropriate for age, anxious. Pain: Complains of pain in right trapezius and right scapular area. EENT: No deficits noted. Neuro: No deficits noted. Cardiovascular: No deficits noted. Respiratory: No deficits noted. GI: No signs and/or symptoms were reported involving the gastrointestinal system. : No signs and/or symptoms were reported regarding the genitourinary system. Derm: No deficits noted. Musculoskeletal: Reports pain in right trapezius and right scapular area. Historical: - Allergies: 14:13 PENICILLINS; aa5 - PMHx: 14:13 CVA; aa5 - PSHx: 14:13 Back sx; aa5 - Immunization history:: Adult Immunizations up to date. - Social history:: Smoking status: Patient/guardian denies using tobacco, the patient reports quitting approximately 2 years ago. - Family history:: not pertinent. Screenin:00 Abuse screen: Denies threats or abuse. Denies injuries from another. Nutritional bp screening: No deficits noted. Tuberculosis screening: No symptoms or risk factors identified. Fall Risk None identified. Assessment: 14:00 General: SEE TRIAGE NOTE. bp 14:54 Reassessment: IVF INFUSING AND ANALGESICS ADMINISTERED. CT PENDING. bp 15:16 Reassessment: PT RETURNED FROM CT. ALL CURRENT ORDERS COMPLETED, RESULTS PENDING. bp 16:28 Reassessment: PT AMBULATED TO AND FROM BATHROOM WITH STEADY GAIT. PT TBDC. bp 16:42 Reassessment: PT D/C HOME AMBULATORY WITH FAMILY, DX WITH CERVICAL RADICULOPATHY. bp Vital Signs: 14:00 BP 162 / 84; Pulse 106; Resp 18 S; Temp 98.5(O); Pulse Ox 95% on R/A; Weight 51.26 kg aa5 (R); Height 5 ft. 4 in. (162.56 cm) (R); 14:54 BP 162 / 84; Pulse 90; Resp 16; Pulse Ox 100% ; bp 15:13 BP 129 / 74; Pulse 86; Resp 20; Pulse Ox 100% ; bp 16:42 BP 155 / 84; Pulse 86; Resp 17; Temp 98.5; Pulse Ox 100% ; bp 14:00 Body Mass Index 19.40 (51.26 kg, 162.56 cm) aa5 ED Course: 13:54 Patient arrived in ED. fj1 14:00 Arm band placed on Patient placed in an exam room, on a stretcher. aa5 14:00 Patient has correct armband on for positive identification. Bed in low position. Call bp light in reach. Side rails up X2. 14:02 Robert Silverio MD is Attending Physician. mateo 14:13 Triage completed. aa5 14:34 Julio César Caro, NELY is Primary Nurse. bp 14:50 Inserted saline lock: 20 gauge in left wrist, using aseptic technique. Blood collected. bp 15:00 Chest Single View XRAY In Process Unspecified. EDMS 15:13 CT C Spine In Process Unspecified. EDMS 16:17 Conner Mahmood MD is Referral Physician. mateo 16:42 No provider procedures requiring assistance completed. IV discontinued, intact, bp bleeding controlled, No redness/swelling at site. Pressure dressing applied. Administered Medications: 14:50 Drug: NS 0.9% 1000 ml Route: IV; Rate: 1 bolus; Site: left wrist; bp 16:44 Follow up: IV Status: Infusion continued; IV Intake: 1000ml bp 14:50 Drug: Valium 5 mg Route: IVP; Site: left wrist; bp 15:14 Follow up: Response: Pain is decreased bp 14:50 Drug: Decadron - Dexamethasone 10 mg Route: IVP; Site: left wrist; bp 15:14 Follow up: Response: Pain is decreased bp 14:50 Drug: TORadol 30 mg Route: IVP; Site: left wrist; bp 15:14 Follow up: Response: Pain is decreased bp 14:50 Drug: morphine 4 mg Route: IVP; Site: left wrist; bp 15:14 Follow up: Response: Pain is decreased bp 14:50 Drug: Zofran (Ondansetron) 4 mg Route: IVP; Site: left wrist; bp 15:14 Follow up: Response: Pain is decreased bp 16:28 Drug: morphine 4 mg Route: IVP; Site: left forearm; bp 16:28 Follow up: Response: Pain is decreased bp Intake: 16:44 IV: 1000ml; Total: 1000ml. bp Outcome: 16:17 Discharge ordered by . mateo 16:43 Discharged to home ambulatory. bp 16:43 Condition: stable 16:43 Discharge instructions given to patient, Instructed on discharge instructions, follow up and referral plans. medication usage, Demonstrated understanding of instructions, follow-up care, medications, Prescriptions given X 5 16:48 Patient left the ED. bp Signatures: Dispatcher [employer] EDSC Robert Silverio MD MD cha Calderon, Audri, RN RN aa5 Julio César Caro, RN RN Tu Rivera fj1
[2019-10-09 16:54] VITALS: TEMP 98.5
[2019-10-09 16:56] VITALS: O2SAT 100
[2019-10-09 16:58] VITALS: BP 155/84
--- NOTE | 2019-10-10 07:16 | EKG ---
Test Date: 2019-10-09 Test Time: 14:47:32 Software Applications Engineer: ISABEL MEASUREMENT RESULTS: Intervals: Rate: 95 AK: 134 QRSD: 70 QT: 356 QTc: 447 Martin: P: 83 AK: 134 QRS: 74 T: 78 INTERPRETIVE STATEMENTS: Sinus rhythm with premature atrial complexes Septal infarct, age undetermined Abnormal ECG Compared to ECG 12/23/2014 13:28:55 Atrial premature complex(es) now present Myocardial infarct finding now present Electronically Signed On 10-10-19 07:15:47 CDT by Lico Hagen
== END 2019-10-09 16:48 | disposition home or self-care (01) ==
LOC: ER 13:52
DX: M54.12 Radiculopathy, cervical region (principal); Z86.73 Personal history of transient ischemic attack (TIA), and cerebral infarction without residual deficits; Z88.0 Allergy status to penicillin
CPT/HCPCS: 93005; 85025; 36415; 84484; 80053; 72125; 71045; J3360; J1100; J7030; J2405; 99284

== ENCOUNTER 2021-02-02 18:41 | Emergency (ER) | payer BC ==
--- OUTSIDE RECORDS SUMMARY | 2021-02-02 18:45 | XMS REPORT | Continuity of Care Document ---
:1960 Author Organization [facility] t Address [address] [place] [address] Care Team Providers Name Role Phone LIANNE Attending Clinician Unavailable MD Joshua ABDALLA Attending Clinician Unavailable Casie Poon Attending Clinician Unavailable LIANNE Admitting Clinician Unavailable MD Joshua ABDALLA Admitting Clinician Unavailable Physician, Primary or Family Admitting Clinician Unavailabl e Payers Payer Name Policy Type Policy Number Effective Date Expiration Date S ource Problems This patient has no known problems. Allergies, Adverse Reactions, Alerts Allergy Allergy Status Severity Reaction(s) Onset Inactive Treating Comm ents Source Name Type Date Date Clinician penicill DA Active U 2003-0 [facility] 10[facility] [place] [facility] No Known DA Active U 2003-0 [facility] Contrast 10-21 [place] [facility] No Known DA Active U 2003-0 [facility] Food 10-21 [place] [facility] No Known DA Active U 2003-0 [facility] Other 10-21 [place] [facility] PENICILL DA Active U 2003-0 [facility] IN 10-21 [place] [facility] penicill DA Active U 2003-0 [facility] 10[facility] [place] [facility] Medications This patient has no known medications. Procedures This patient has no known procedures. Encounters Start End Encounter Admission Attending Care Care Encounter Source Date/Time Date/Time Type Type Clinicians Facility Department ID 2020-07-14 2020-07-14 Outpatient ABDALLA, [facility] [id number] [place] 00:00:00 00:00:00 JAISON [address] 2020-07-14 2020-07-14 Outpatient ABDALLA, [facility] [id number] [place] 00:00:00 00:00:00 JAISON [address] 2020-07-14 2020-07-14 Outpatient ABDALLA, [facility] [id number] [place] 00:00:00 00:00:00 JAISON [address] 2019-11-08 2019-11-08 Outpatient ABDALLA, [facility] [id number] [place] 00:00:00 00:00:00 JAISON [address] 2019-11-06 2019-11-06 Outpatient ABDALLA, [facility] [id number] [place] 00:00:00 00:00:00 JAISON [address] 2019-11-06 2019-11-06 Outpatient ABDALLA, [facility] [id number] [place] 00:00:00 00:00:00 JAISON [address] 2019-11-05 2019-11-05 Outpatient ABDALLA, [facility] [id number] [place] 00:00:00 00:00:00 JAISON [address] 2019-11-05 2019-11-05 Outpatient ABDALLA, [facility] [id number] [place] 00:00:00 00:00:00 JAISON [address] 2019-10-11 2019-10-17 Inpatient ABDALLA, [facility] [id number] [place] 00:00:00 00:00:00 JAISON [address] 2019-10-11 2019-10-11 Outpatient ABDALLA, [facility] [id number] 2019 [place] 00:00:00 00:00:00 JAISON [address] 2019-10-11 2019-10-11 Outpatient ABDALLA, [facility] [id number] [place] 00:00:00 00:00:00 JAISON [address] 2019-10-11 2019-10-11 Outpatient ABDALLA, [facility] [id number] [place] 00:00:00 00:00:00 JAISON [address] 2019-10-04 2019-10-04 Outpatient ABDALLA, [facility] [id number] [place] 00:00:00 00:00:00 JAISON [address] 2019-09-04 2019-09-04 Outpatient ABDALLA, [place] [id number] [place] 00:00:00 00:00:00 JAISON [address] [facility] 2019-08-31 2019-08-31 Outpatient ABDALLA, [facility] [id number] [place] 00:00:00 00:00:00 JAISON [address] [facility] 2019-08-29 2019-08-29 Outpatient OK Poon [facility] JEMAL [id number] [facility] 12:00:00 12:00:00 Mariama [id number] [facility] 2019-08-20 2019-08-20 Outpatient ABDALLA, [facility] [id number] [place] 00:00:00 00:00:00 JAISON [address] [facility] 2019-08-20 2019-08-20 Outpatient ABDALLA, [facility] [id number] [place] 00:00:00 00:00:00 JAISON [address] [facility] 2019-08-20 2019-08-20 Outpatient ABDALLA, [facility] [id number] [place] 00:00:00 00:00:00 JAISON [address] [facility] 2019-08-20 2019-08-20 Outpatient ABDALLA, [facility] [id number] [place] 00:00:00 00:00:00 JAISON [address] [facility] 2019-08-20 2019-08-20 Outpatient ABDALLA, [facility] [id number] [place] 00:00:00 00:00:00 JAISON [address] [facility] 2019-08-07 2019-08-07 Outpatient OK Poon [facility] JEMAL [id number] [facility] 12:00:00 12:00:00 Mariama [id number] [facility] Results Test Description Test Time Test Comments Results Result Comments Source SARS-CoV-2 (COVID-19) RNA [Presence] in Respiratory sp ecimen by 2019-10-12 00:12:49 RICARDO with probe detection Test Item Value Reference Range Interpretation Comme nts SARS-CoV-2 (COVID-19) RNA [Presence] in Respiratory Not detected No t-Detected specimen by RICARDO with probe detection (test code = 51784-1) SARS coronavirus 2 RNA [Presence] in Respiratory specimen by RICARDO with probe [id number] 22:09:18 Test Item Value Reference Range Interpretation Comments SARS coronavirus 2 RNA Not detected Not-Detected [Presence] in Respiratory specimen by RICARDO with probe detection (test code = 54748-3) SARS coronavirus 2 RNA [Presence] in Respiratory specimen by RICARDO with probe [id number] 03:05:11 Test Item Value Reference Range Interpretation Comments SARS coronavirus 2 RNA Not detected Not-Detected [Presence] in Respiratory specimen by RICARDO with probe detection (test code = 75121-6)
--- NOTE | 2021-02-02 19:04 | RAD REPORT ---
EXAM DESCRIPTION: RAD - Elbow Right 3 View - 02/02/2021 6:56 pm CLINICAL HISTORY: PAIN COMPARISON: No comparisons FINDINGS: No fracture or dislocation is identified.
--- NOTE | 2021-02-02 19:30 | RAD REPORT ---
EXAM DESCRIPTION: CT - [id number] - 02/02/2021 7:19 pm CLINICAL HISTORY: Trauma, head and neck injury. fall COMPARISON: <Comparisons> TECHNIQUE: Axial 5 mm thick images of the head were obtained. Axial 2 mm thick images of the cervical spine were obtained with sagittal and coronal reconstruction images generated and reviewed. All CT scans are performed using dose optimization technique as appropriate and may include automated exposure control or mA/KV adjustment according to patient size. FINDINGS: CT HEAD WITHOUT CONTRAST: No acute hemorrhage, hydrocephalus or extra-axial collection is identified.Gliosis is seen in the lef t temporoparietal region compatible with old infarction.No areas of brain edema or midline shift. The paranasal sinuses and mastoids are clear.The calvarium is intact. CT CERVICAL SPINE WITHOUT CONTRAST: No fracture or subluxation.Mild cervical degenerative changes are present with ACDF spanning C6-7.No prevertebral soft tissues swelling is identified. IMPRESSION: No acute intracranial or cervical spine findings.
[2021-02-02] MEDS ORDERED: LIDOCAINE 1% 20 ML MDV ONE (20:05)
[2021-02-02 20:25] LABS: Urine Blood Trace-lysed (Negative); Urine Glucose Negative (Negative); Urine Protein Negative (Negative); Urine Specific Gravity 1.015 (1.005-1.030)
[2021-02-02 20:52] LABS: Barbiturates NEGATIVE (NEGATIVE); Benzodiazepines NEGATIVE (NEGATIVE); Cocaine NEGATIVE (NEGATIVE); METHAMPHETAM NEGATIVE (NEGATIVE); Methadone NEGATIVE (NEGATIVE); Opiates NEGATIVE (NEGATIVE); Phencyclidine NEGATIVE (NEGATIVE); THC Cannibis NEGATIVE (NEGATIVE)
[2021-02-02 21:06] LABS: Absolute Lymphocytes (CBC) 1.7 K/uL (0.7-4.9); Hematocrit 40.5 % (36.0-45.0); Lymphocytes % 26.9 % (15.3-44.8); RBC Red Blood Cell Count 4.62 M/uL (3.86-4.86)
[2021-02-02] MEDS ORDERED: TETANUS & DIPHTHERIA TOX,ADULT 0.5 ML VIAL ONE (21:13)
[2021-02-02 21:24] LABS: ALT/SGPT 26 U/L (12-78); Albumin 3.8 g/dL (3.4-5.0); Alkaline Phosphatase 73 U/L (45-117); BUN Blood Urea Nitrogen 15 mg/dL (7-18); Bicarbonate 28 mmol/L (21-32); Bilirubin Direct < 0.1 mg/dL (0-0.2); Bilirubin Total 0.1 mg/dL (0.2-1.0); Glucose Level 109 mg/dL (74-106); Protein, Total 7.3 g/dL (6.4-8.2); Sodium Level 144 mmol/L (136-145)
[2021-02-02 21:25] LABS: AST/SGOT 29 U/L (15-37); Potassium 4.3 mmol/L (3.5-5.1)
--- NOTE | 2021-02-02 22:04 | ER ---
Nurse's Notes [facility] Name: Adrienne Pennington Age: 60 yrs Sex: Female : 1960 Arrival Date: 02/02/2021 Time: 18:44 Bed 4 Private MD: Diagnosis: Laceration without foreign body of right elbow, initial encounter;Concussion without loss of consciousness, initial encounter;Postconcussional syndrome Presentation: 02/02 18:44 Chief complaint: Spouse and/or significant other states: Was standing in kitchen, lost ss balance and fell straight back. Pt admits to drinking ETOH. Pt does not remember what happened. Care prior to arrival: None. Mechanism of Injury: Fall from standing position. Trauma event details: Injury occurred in the [facility], Injury occurred: at home. Injury occurred: February 02, 2021. 18:44 Acuity: YOHAN 2 ss 18:44 Method Of Arrival: Wheelchair ss 18:53 Coronavirus screen: Client denies travel out of the [place] in the last 14 days. Ebola ss Screen: Patient denies exposure to infectious person. Patient denies travel to an Ebola-affected area in the 21 days before illness onset. Initial Sepsis Screen: Does the patient meet any 2 criteria? No. Patient's initial sepsis screen is negative. Does the patient have a suspected source of infection? No. Patient's initial sepsis screen is negative. Risk Assessment: Do you want to hurt yourself or someone else? Patient reports no desire to harm self or others. Onset of symptoms was February 02, 2021. 22:00 Note Pt ambulated in [place] with no assist. Pt going home with spouse. Denies pain at df1 this time. Triage Assessment: 21:55 General: Appears unkempt, Behavior is inappropriate for age. Pain: Denies pain. df1 Trauma Activation: Alert Physician: ED Physician; Name: ; Notified At: ; Arrived At: Physician: General Surgeon; Name: ; Notified At: ; Arrived At: Physician: Radiology; Name: ; Notified At: ; Arrived At: Physician: Respiratory; Name: ; Notified At: ; Arrived At: Physician: Lab; Name: ; Notified At: ; Arrived At: Historical: - Allergies: 18:56 PENICILLINS; ss - Immunization history:: Client reports receiving the 2nd dose of the Covid vaccine. - Immunization history: Last tetanus immunization: < 10 years ago. - Social history:: Smoking status: Patient reports the use of cigarette tobacco products, smokes one pack cigarettes per day. Screenin:55 Abuse screen: Denies threats or abuse. Nutritional screening: No deficits noted. df1 Tuberculosis screening: No symptoms or risk factors identified. Fall Risk Fall in past 12 months (25 points). No secondary diagnosis (0 pts). IV access (20 points). Ambulatory Aid- None/Bed Rest/Nurse Assist (0 pts). Gait- Normal/Bed Rest/Wheelchair (0 pts) Mental Status- Oriented to own ability (0 pts). Total Glass Fall Scale indicates No Risk (0-24 pts). Primary Survey: 18:44 NO uncontrolled hemorrhage observed. A: The patient is alert. Airway: patent, No ss supplemental oxygen in use on arrival. Oral cavity: clear, Trachea midline. Breathing/Chest: Respiratory pattern: regular, Respiratory effort: spontaneous, unlabored, Breath sounds: clear, bilaterally. Chest inspection: symmetrical rise and fall of the chest. Circulation: Skin color: pink, Skin temperature: warm. Disability Alert. Exposure/Environment: There is no evidence of uncontrolled external bleeding. Obvious injury(ies) are noted at this time: 3 inch laceration noted to R elbow. No active bleeding noted at this time. 21:57 Reassessment Breathing/Chest Respiratory pattern Regular Respiratory effort Spontaneous df1 Unlabored Breath sounds Clear. Secondary Survey: 21:53 HEENT: No deficits noted. Gastrointestinal: No deficits noted. : No deficits noted. df1 Musculoskeletal: No deficits noted. Injury Description: Laceration sustained to back of right arm. Assessment: 19:12 Respiratory: Airway is patent Trachea midline Respiratory effort is even, unlabored. tw5 19:13 General: seen removing necklace from , along with the earrings. tw5 Vital Signs: 18:53 BP 127 / 69; Pulse 72; Resp 16; Temp 97.0(TE); Weight 58.51 kg; Pain 0/10; ss 20:00 BP 115 / 61; Pulse 75; Resp 18; Pulse Ox 100% on R/A; df1 21:00 BP 120 / 65; Pulse 76; Resp 18; Pulse Ox 99% on R/A; df1 22:00 BP 121 / ???; Pulse 64; Resp 18; Pulse Ox 99% on R/A; Pain 0/10; df1 [place] Coma Score: 18:44 Eye Response: spontaneous(4). Verbal Response: confused(4). Motor Response: obeys ss commands(6). Total: 14. Trauma Score (Adult): 18:44 Eye Response: spontaneous(1); Verbal Response: confused(1); Motor Response: obeys ss commands(2); Systolic BP: > 89 mm Hg(4); Respiratory Rate: 10 to 29 per min(4); [place] Score: 14; Trauma Score: 12 ED Course: 18:44 Patient arrived in ED. bd 18:45 Miguel Gomez PA is PHCP. jr8 18:45 Robert Silverio MD is Attending Physician. jr8 18:52 Triage completed. ss 18:56 XRAY Elbow RIGHT 3 view In Process Unspecified. EDMS 18:56 Arm band placed on right wrist. ss 19:12 Alexa Goode is Primary Nurse. tw5 19:[address] via stretcher. tw5 19:19 CT Head C Spine In Process Unspecified. EDMS 20:27 Urine Drug Screen Sent. df1 21:56 Assist provider with laceration repair on back of right arm that was between 2.6 to 7.5 df1 cm using sutures. Set up tray. Performed by Walt Rogers MD Dressed with Kerlix, antibiotic ointment. 21:58 Patient has correct armband on for positive identification. Placed in gown. Bed in low df1 position. Call light in reach. Side rails up X 1. Adult w/ patient. quality assurance monitor final on. Pulse ox on. NIBP on. 21:58 Patient did not have IV access during this emergency room visit. df1 21:58 Patient maintains SpO2 saturation greater than 95% on room air. Thermoregulation: warm df1 blanket given to patient. 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 Exp: df1 07/18/2022. Lot #: [id number]. } Route: IM; Site: left deltoid; Intake: 21:53 PO: 0ml; Total: 0ml. df1 Output: 21:53 Urine: 500ml (Voided); Total: 500ml. df1 Outcome: 21:57 Discharged to home ambulatory. df1 21:57 Condition: good 21:57 Discharge instructions given to patient, significant other, Instructed on discharge instructions, follow up and referral plans. Demonstrated understanding of instructions, follow-up care. 21:58 Patient's length of stay in the Emergency Department was greater than 2 hours. df1 Patient's length of stay was extended due to staffing issues within the emergency department. 22:04 Discharge ordered by MD. flores 22:14 Patient left the ED. df1 Signatures: Dispatcher [employer] EDMS Marta Last Shelby RN RN ss Palak Guerrero RN RN lp1 Miguel Gomez PA PA jr8 Furlich, Dawn df1 Alexa Goode tw5
--- NOTE | 2021-02-02 22:05 | EDPHYS ---
Physician Documentation [facility] Name: Adrienne Pennington Age: 60 yrs Sex: Female : 1960 Arrival Date: 02/02/2021 Time: 18:44 Bed 4 Private MD: ED Physician Robert Silverio HPI: 02/02 19:46 This 60 yrs old Female presents to ER via Wheelchair with complaints of Fall Injury, jr8 ETOH Abuse. 19:46 This is a 60-year-old female that presented to the emergency room after sustaining fall jr8 at home. Patient stated that she has been drinking alcohol tonight. Lost balance and fell straight backwards hitting the back of her head and right elbow. Unknown if patient had a loss of consciousness. Patient currently alert and oriented to person and place. Patient complains of head pain and right elbow pain.. Historical: - Allergies: 18:56 PENICILLINS; ss - Immunization history:: Client reports receiving the 2nd dose of the Covid vaccine. - Immunization history: Last tetanus immunization: < 10 years ago. - Social history:: Smoking status: Patient reports the use of cigarette tobacco products, smokes one pack cigarettes per day. ROS: 19:46 Constitutional: Negative for fever, chills, and weight loss, Cardiovascular: Negative jr8 for chest pain, palpitations, and edema, Respiratory: Negative for shortness of breath, cough, wheezing, and pleuritic chest pain, Abdomen/GI: Negative for abdominal pain, nausea, vomiting, diarrhea, and constipation, Back: Negative for injury and pain. 19:46 MS/extremity: Positive for laceration, pain, of the right arm. 19:46 Neuro: Positive for headache. 19:46 All other systems are negative. Exam: 19:46 Head/Face: Normocephalic, atraumatic. Eyes: Pupils equal round and reactive to light, jr8 extra-ocular motions intact. Lids and lashes normal. Conjunctiva and sclera are non-icteric and not injected. Cornea within normal limits. Periorbital areas with no swelling, redness, or edema. ENT: Nares patent. No nasal discharge, no septal abnormalities noted. Tympanic membranes are normal and external auditory canals are clear. Oropharynx with no redness, swelling, or masses, exudates, or evidence of obstruction, uvula midline. Mucous membranes moist. Neck: Trachea midline, no thyromegaly or masses palpated, and no cervical lymphadenopathy. Supple, full range of motion without nuchal rigidity, or vertebral point tenderness. No Meningismus. Cardiovascular: Regular rate and rhythm with a normal S1 and S2. No gallops, murmurs, or rubs. Normal PMI, no JVD. No pulse deficits. Respiratory: Lungs have equal breath sounds bilaterally, clear to auscultation and percussion. No rales, rhonchi or wheezes noted. No increased work of breathing, no retractions or nasal flaring. Abdomen/GI: Soft, non-tender, with normal bowel sounds. No distension or tympany. No guarding or rebound. No evidence of tenderness throughout. Back: No spinal tenderness. No costovertebral tenderness. Full range of motion. Skin: Warm, dry with normal turgor. Normal color with no rashes, no lesions, and no evidence of cellulitis. Neuro: Awake and alert, GCS 15, oriented to person, place, time, and situation. Cranial nerves II-XII grossly intact. Motor strength 5/5 in all extremities. Sensory grossly intact. 19:46 Musculoskeletal/extremity: Extremities: grossly normal except: noted in the right arm: Patient has U-shaped laceration to the olecranon process of the right arm. No bleeding at this time. Full range of motion present. Sensation intact. 2+ pulses radially to affected extremity. Remainder of other extremities unremarkable. Vital Signs: 18:53 BP 127 / 69; Pulse 72; Resp 16; Temp 97.0(TE); Weight 58.51 kg; Pain 0/10; ss 20:00 BP 115 / 61; Pulse 75; Resp 18; Pulse Ox 100% on R/A; df1 21:00 BP 120 / 65; Pulse 76; Resp 18; Pulse Ox 99% on R/A; df1 22:00 BP 121 / ???; Pulse 64; Resp 18; Pulse Ox 99% on R/A; Pain 0/10; df1 [place] Coma Score: 18:44 Eye Response: spontaneous(4). Verbal Response: confused(4). Motor Response: obeys ss commands(6). Total: 14. Trauma Score (Adult): 18:44 Eye Response: spontaneous(1); Verbal Response: confused(1); Motor Response: obeys ss commands(2); Systolic BP: > 89 mm Hg(4); Respiratory Rate: 10 to 29 per min(4); [place] Score: 14; Trauma Score: 12 Laceration: 20:27 Wound Repair of 6cm ( 2.4in ) subcutaneous laceration to right arm. Distal jr8 neuro/vascular/tendon intact. Anesthesia: Local anesthetic administered with 6 mls of 1% lidocaine. Wound prep: Extensive cleansing with betadine, Wound irrigation with saline, Copious irrigation. Skin closed with 8 4-0 Prolene using interrupted sutures and sterile technique. Patient tolerated well. MDM: 18:45 Patient medically screened. jr8 21:44 Data reviewed: vital signs, nurses notes, lab test result(s), EKG, radiologic studies, jr8 CT scan, plain films. Data interpreted: Pulse oximetry: on room air is 98 %. Interpretation: normal. Counseling: I had a detailed discussion with the patient and/or guardian regarding: the historical points, exam findings, and any diagnostic results supporting the discharge/admit diagnosis, lab results, radiology results, the need for outpatient follow up, a family practitioner, a neurologist, to return to the emergency department if symptoms worsen or persist or if there are any questions or concerns that arise at home. ED course: Patient's memory improving. 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 Patient remains hemodynamically stable. No acute CT findings of head or neck. Remainder labs stable. I had patient ambulate without any difficulty. feels comfortable with her going home with him as he is off the next several days. They know to come back immediately if she were to have any sort of abrupt mental status change.. 02/02 18:47 Order name: Basic Metabolic Panel; Complete Time: 21:33 02/02 18:47 Order name: CBC with Diff 02/02 18:47 Order name: ETOH Level; Complete Time: 20:50 02/02 18:47 Order name: Hepatic Function; Complete Time: 21:33 02/02 18:47 Order name: Urine Drug Screen; Complete Time: 20:58 02/02 18:47 Order name: EKG; Complete Time: 18:47 02/02 18:47 Order name: CT Head C Spine; Complete Time: 19:43 [facility] 02/02 18:47 Order name: XRAY Elbow RIGHT 3 view; Complete Time: 19:11 [facility] 02/02 20:26 Order name: Urine Dipstick-Ancillary; Complete Time: 20:28 [facility] 02/02 21:18 Order name: CBC Smear Scan [facility] 02/02 18:47 Order name: EKG - Nurse/Tech; Complete Time: 20:21 [facility] 02/02 18:47 Order name: IV Saline Lock [facility] 02/02 18:47 Order name: Labs collected and sent [facility] 02/02 18:47 Order name: Suicide Screening ([place]) [facility] 02/02 18:47 Order name: Urine Dipstick-Ancillary (obtain specimen); Complete Time: 20:27 [facility] Administered Medications: 20:00 Drug: Lidocaine (1 %) 1 vials Volume: 20 ml; Route: Infiltration; 1 21:17 Drug: Tetanus-Diphtheria Toxoid Adult 0.5 ml {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 Exp: df1 07/18/2022. Lot #: [id number]. } Route: IM; Site: left deltoid; Disposition: 02/03 08:43 Co-signature as Attending Physician, Robert Silverio MD I agree with the assessment and mateo plan of care. Disposition Summary: 02/02/21 22:04 Discharge Ordered Location: Home [facility] Problem: new jr8 Symptoms: have improved jr8 Condition: Stable jr8 Diagnosis - Laceration without foreign body of right elbow, initial encounter jr8 - Concussion without loss of consciousness, initial encounter jr8 - Postconcussional syndrome jr8 Followup: jr8 - With: Private Physician - When: 2 - 3 days - Reason: Recheck today's complaints, Continuance of care, Re-evaluation by your physician Discharge Instructions: - Discharge Summary Sheet jr8 - Concussion, Adult jr8 - Head Injury, Adult jr8 - Laceration Care, Adult jr8 - Post-Concussion Syndrome jr8 Forms: - Medication Reconciliation Form jr8 - Thank You Letter jr8 - Antibiotic Education jr8 - Prescription Opioid Use jr8 Signatures: Dispatcher [employer] EDRobert Sorensen MD MD cha Smirch, Shelby, RN RN ss Palak Guerrero RN RN lp1 Miguel Gomez PA PA jr8 Furlich, Kim df1
[2021-02-02 22:36] LABS: Blood Morphology Comment NOT SEEN (NOT SEEN); Platelet Estimate ADEQ; White Blood Cell Scan OK (OK)
[2021-02-02 22:48] VITALS: TEMP 97.4
[2021-02-02 22:52] VITALS: BP 136/91; O2SAT 95
--- NOTE | 2021-02-03 07:06 | EKG ---
Test Date: 2021-02-02 Test Time: 20:13:04 Patient Coordinator: DIMPLE MEASUREMENT RESULTS: Intervals: Rate: 92 AL: 126 QRSD: 74 QT: 388 QTc: 479 [place]: P: 65 AL: 126 QRS: 74 T: 58 INTERPRETIVE STATEMENTS: Normal sinus rhythm Normal ECG Compared to ECG 10/09/2019 14:47:32 Atrial premature complex(es) no longer present Myocardial infarct finding no longer present Electronically Signed On 02-03-21 07:04:31 APPLICATIONS ANALYST by Lico Hagen
== END 2021-02-02 22:14 | disposition home or self-care (01) ==
LOC: ER 18:41
PROC: 0JQG0ZZ Repair Right Lower Arm Subcutaneous Tissue and Fascia, Open Approach (ICD-10-PCS; principal; 2021-02-02)
DX: S51.011A Laceration without foreign body of right elbow, initial encounter (principal); S06.0X0A Concussion without loss of consciousness, initial encounter; F07.81 Postconcussional syndrome; W01.10XA Fall on same level from slipping, tripping and stumbling with subsequent striking against unspecified object, initial encounter; Y93.89 Activity, other specified; Y92.019 Unspecified place in single-family (private) house as the place of occurrence of the external cause; Z23 Encounter for immunization
CPT/HCPCS: 36415; 70450; 72125; 80048; 80076; 80307; 80320; 81003; 85025; 90471; 90714; 93005; 99285